=== PATIENT | male | born 1965 | race Caucasian/White ===

== ENCOUNTER 2023-07-27 13:49 | Day surgery (SDC) | payer OTHER ==
[~2023-07-27] VITALS: Ht 177.8 cm; Wt 105.7 kg
[2023-07-27 13:35] VITALS: BP 145/95; PULSE 71; TEMP 97.1
[2023-07-27 13:48] VITALS: BP 145/95; PULSE 71; TEMP 97.1
[~2023-07-27 13:49] MED LIST: AMOXICILLIN 8751 TAB PO; FLONASEALLERGY NS; PROAIR HFA0.09 MG/AC IH
[2023-07-27 14:50] VITALS: BP 170/98; PULSE 60; TEMP 97.4
[2023-07-27 15:05] VITALS: BP 161/89; PULSE 60
--- NOTE | 2023-07-27 15:30 | NUR ---
1450 RETURNS TO ROOM 8 PER CART. AWAKE, ALERT. HOB ELEVATED 60 DEGREES. COBAN WRAPPED DRESSING LEFT INDEX FINGER CLEAN DRY AND INTACT. LEFT UPPER EXTREMTIY ELEVATED, ICE PACK APPLIED. DENIES PAIN STRON RADIAL PULSE PALPATED MOVES ALL FINGERS ON REQUEST. CALL LIGHT AT SIDE 1500 TOLERATES PO SODA. 1510 DISCHARGE INSTRUCTIONS REVIEWED. PATIENT VERBALIZES UNDERSTANDING. COPY, INCLUDING THOSE HAND CARRIED BY DR. KEITH PROVIDED IN DISCHARGE FOLDER 1525 SITS ON EDGE OF CART. DRESSES SELF, THEN AMBULATES TO BATHROOM WITH STANDBY ASSIST. CONTINUES TO EXPRESS COMFORT
[2023-07-27 16:00] VITALS: BP 200/102; PULSE 65
== END 2023-07-27 15:30 | disposition home or self-care (01) ==
LOC: SDCO 13:49
DX: S68.121A Partial traumatic metacarpophalangeal amputation of left index finger, initial encounter (principal); W29.8XXA Contact with other powered hand tools and household machinery, initial encounter
CPT/HCPCS: J0665; J0690; J2250; J2704; J3010